=== PATIENT | male | born 1950 | race Caucasian/White ===

== ENCOUNTER → 2017-07-14 | Outpatient (CLI) | payer OTHER ==
[~2017-07-14] MED LIST: ALUM320SU PO; ASPI325; BUSP10; BUSP10 PO; CHOL10002 PO; CHROMAGEN SOFT1 EACH PO; CLOM50A PO; COMPAZINE10 MG PO; CYAN500 PO; DIPATR PO; DIPATRL; ERGO400 PO; FURO20 PO; GLEEVEC PO; HYDACE5 PO; HYDACE5325; HYDACE7.5; HYDR1TAB94; HYDR1TAB94 PO; KOSHER PRENATA1 EACH PO; LANS30EC; LEVFLO500 PO; LEVO750 PO; LOSA25 PO; LOSHYD; LOSHYD PO; Levothyroxine200 MCG PO; Lomotil Tablet1 EACH PO; MAGOX 400400 MG; MAGOX 400400 MG PO; MULVIT; Norco 5-325 Ta1 EACH PO; OMEPRAZOLE MAGN20 MG PO; ONDA4ODT MM; OXYC5; POTA8 PO; PRENAPLUS PO; PROBIOTIC1 EAC1 PO; PROP10 PO; PROP20; Percocet 5-3251 EACH PO; QUET25; QUET25 PO; RISP2; SENSIPAR PO; SULTRIDS PO; Sutent50 MG; TRAM50 PO; VALP250; ZOLP10 PO; Zithromax250 MG PO; Zofran8 MG PO; [UNRECOGNIZED DRUG - CODE]
[2017-07-14 14:27] LABS: Bilirubin, Urine Neg (Neg); Blood, Urine Neg (Neg); Glucose Qualitative, Urine Neg (Neg); Ketones, Urine Neg (Neg); Leukocyte Esterase, Urine Neg (Neg); Nitrite, Urine Neg (Neg); Protein, Urine Neg (Neg); Specific Gravity, Urine 1.015 (1.003-1.022); Urobilinogen, Urine NORM (Normal)
[2017-07-14 14:32] LABS: Albumin, Blood 3.4 g/dL (3.4-5.0); Albumin/Globulin Ratio 0.9 (0.8-1.8); Bilirubin, Total 0.3 mg/dL (0.1-1.0); Bun/Creatinine Ratio 15.4 (12.0-20.0); Calcium, Blood 11.4 mg/dL (8.5-10.1); Creatinine, Blood 1.43 mg/dL (0.60-1.20); Globulin, Blood 3.9 g/dL (2.2-4.0); Potassium, Blood 5.4 mmol/L (3.5-5.5); Total Protein, Blood 7.3 g/dL (6.4-8.2)
[2017-07-14 14:40] LABS: Appearance, Urine Clear (Clear); Color, Urine Yellow (P-Yellow)
== END ==
LOC: LAB 14:01
PROVIDERS: Internal Medicine Hematology & Oncology
DX: E83.52 Hypercalcemia (principal)
CPT/HCPCS: 80053; 81003

== ENCOUNTER 2017-07-19 09:14 | Emergency (ER) | payer OTHER ==
[~2017-07-19] VITALS: Ht 175.3 cm; Wt 102.1 kg
[~2017-07-19 09:14] MED LIST changes: -ALUM320SU PO; -ASPI325; -CHOL10002 PO; -CHROMAGEN SOFT1 EACH PO; -COMPAZINE10 MG PO; -CYAN500 PO; -DIPATRL; -ERGO400 PO; -FURO20 PO; -HYDR1TAB94; -KOSHER PRENATA1 EACH PO; -LOSA25 PO; -Levothyroxine200 MCG PO; -Lomotil Tablet1 EACH PO; -MAGOX 400400 MG; -MAGOX 400400 MG PO; -OXYC5; -POTA8 PO; -PROBIOTIC1 EAC1 PO; -Percocet 5-3251 EACH PO; -SENSIPAR PO; -Sutent50 MG; -TRAM50 PO
[2017-07-19 09:56] LABS: Alanine Aminotransfer (ALT/SGP 25 U/L (12-78); Albumin, Blood 3.5 g/dL (3.4-5.0); Albumin/Globulin Ratio 0.8 (0.8-1.8); Alk Phos 158 U/L (50-136); Anion Gap 8 mmol/L (6-16); Aspartate Aminotrans (AST/SGOT 29 U/L (12-37); Bilirubin, Total 0.4 mg/dL (0.1-1.0); Blood Urea Nitrogen 18 mg/dL (8-24); Bun/Creatinine Ratio 14.8 (12.0-20.0); CO2, Blood 22 mmol/L (21-32); Calcium, Blood 10.3 mg/dL (8.5-10.1); Chloride, Blood 107 mmol/L (98-108); Creatinine, Blood 1.22 mg/dL (0.60-1.20); Globulin, Blood 4.3 g/dL (2.2-4.0); Glomerular Filtration Rate >60 (60-); Glucose, Blood 94 mg/dL (70-99); Magnesium, Blood 1.7 mg/dL (1.6-2.4); Phosphorus, Blood 2.1 mg/dL (2.5-4.9); Potassium, Blood 4.7 mmol/L (3.5-5.5); Sodium, Blood 137 mmol/L (136-145); Total Protein, Blood 7.8 g/dL (6.4-8.2)
[2017-07-19 10:22] LABS: BASOPHILS ABSOLUTE AUTO 0.02 K/mm3 (0.00-0.23); BASOPHILS PERCENT AUTO 0 % (0-2); EOSINOPHILS ABSOLUTE AUTO 0.38 K/mm3 (0.00-0.68); EOSINOPHILS PERCENT AUTO 3 % (0-6); Hematocrit 36.9 % (37.0-53.0); Hemoglobin 11.9 g/dL (13.5-17.5); IMMATURE GRAN ABSOLUTE AUTO 0.05 K/mm3 (0.00-0.10); IMMATURE GRAN PERCENT AUTO 0 % (0-1); LYMPHOCYTES ABSOLUTE AUTO 1.16 K/mm3 (0.84-5.20); LYMPHOCYTES PERCENT AUTO 9 % (21-46); MONOCYTES ABSOLUTE AUTO 1.06 K/mm3 (0.16-1.47); MONOCYTES PERCENT AUTO 8 % (4-13); Mean Corpuscular HGB Conc 32.2 g/dL (31.5-36.5); Mean Corpuscular Volume 90 fL (80-100); NEUTROPHILS ABSOLUTE AUTO 10.84 K/mm3 (1.96-9.15); NEUTROPHILS PERCENT AUTO 80 % (41-73); Platelet Count 203 K/mm3 (150-400); RDW Coefficient Variation 14.3 % (11.7-14.2); RDW Standard Deviation 46.8 fL (35.1-46.3); Red Blood Cell Count 4.11 M/mm3 (4.30-5.90); White Blood Cell Count 13.51 K/mm3 (4.00-11.30)
[2017-07-19 10:44] LABS: Source, Urine Clean Catch
[2017-07-19 10:48] LABS: Bilirubin, Urine Neg (Neg); Blood, Urine 1+ (Neg); Glucose Qualitative, Urine Neg (Neg); Ketones, Urine Neg (Neg); Leukocyte Esterase, Urine Neg (Neg); Nitrite, Urine Neg (Neg); Protein, Urine 3+ (Neg); Specific Gravity, Urine 1.015 (1.003-1.022); Urobilinogen, Urine NORM (Normal)
[2017-07-19 11:07] LABS: Appearance, Urine Clear (Clear); Color, Urine Yellow (P-Yellow)
[2017-07-19 11:08] LABS: Bacteria Few /hpf; Squamous Epithelial Cells Few /hpf (Few); White Blood Cells, Urine 0-2 /hpf (0-5)
[2017-11-14] MEDS ORDERED: HYDR1TAB94 (08:17)
[2017-11-14] MEDS ORDERED: MAGOX 400400 MG (08:17)
[2017-11-14] MEDS ORDERED: ASPI325 (08:18)
[2017-11-21] MEDS ORDERED: CHOL10002 PO (07:38)
[2017-11-21] MEDS ORDERED: SENSIPAR PO (07:38)
[2017-11-21] MEDS ORDERED: CYAN500 PO (07:40)
[2018-04-26] MEDS ORDERED: OXYC5 (16:53)
[2018-04-26] MEDS ORDERED: PROBIOTIC1 EAC1 PO (16:53)
[2018-04-26] MEDS ORDERED: Sutent50 MG (16:54)
[2018-04-26] MEDS ORDERED: COMPAZINE10 MG PO (18:44)
== END 2017-07-19 12:31 | disposition home or self-care (01) ==
LOC: ER 09:14
PROVIDERS: Emergency Medicine
DX: R46.89 Other symptoms and signs involving appearance and behavior (principal); N28.9 Disorder of kidney and ureter, unspecified; D64.9 Anemia, unspecified; I11.0 Hypertensive heart disease with heart failure; I50.9 Heart failure, unspecified; K21.9 Gastro-esophageal reflux disease without esophagitis; Z88.0 Allergy status to penicillin; Z91.048 Other nonmedicinal substance allergy status; Z79.899 Other long term (current) drug therapy; Z85.028 Personal history of other malignant neoplasm of stomach; Z85.05 Personal history of malignant neoplasm of liver
CPT/HCPCS: 36415; 70450; 71046; 80053; 81001; 83735; 84100; 85025; 93005; 93010; 96360; 99284; J7030

== ENCOUNTER → 2018-01-04 | Outpatient (CLI) | payer OTHER ==
[~2018-01-04] MED LIST changes: +ASPI325; +CHOL10002 PO; +CYAN500 PO; +HYDR1TAB94; +MAGOX 400400 MG; +OMEP40CA12 PO; -OMEPRAZOLE MAGN20 MG PO; +SENSIPAR PO
[2018-01-04 16:55] LABS: Free Thyroxine 1.6 ng/dL (0.70-1.60)
[2018-01-04 16:56] LABS: Thyroid Stimulating Hormone 0.325 uIU/mL (0.360-4.800)
== END | disposition home or self-care (01) ==
LOC: LAB SHORT 13:56 → LAB 13:56
PROVIDERS: Internal Medicine Hematology & Oncology
DX: E07.9 Disorder of thyroid, unspecified (principal); E21.0 Primary hyperparathyroidism
CPT/HCPCS: 84439; 84443

== ENCOUNTER → 2018-01-16 | Outpatient (CLI) | payer OTHER ==
[2018-01-16 17:43] LABS: Percent Saturation 8.6 % (20.0-50.0)
[2018-01-16 17:52] LABS: Alanine Aminotransfer (ALT/SGP 26 U/L (12-78); Albumin, Blood 3.3 g/dL (3.4-5.0); Albumin/Globulin Ratio 0.8 (0.8-1.8); Alk Phos 172 U/L (50-136); Anion Gap 9 mmol/L (6-16); Aspartate Aminotrans (AST/SGOT 23 U/L (12-37); Bilirubin, Total 0.3 mg/dL (0.1-1.0); Blood Urea Nitrogen 20 mg/dL (8-24); CO2, Blood 25 mmol/L (21-32); Calcium, Blood 9.4 mg/dL (8.5-10.1); Chloride, Blood 105 mmol/L (98-108); Creatinine, Blood 1.25 mg/dL (0.60-1.20); Globulin, Blood 4.3 g/dL (2.2-4.0); Glomerular Filtration Rate >60 (60-); Glucose, Blood 111 mg/dL (70-99); Sodium, Blood 139 mmol/L (136-145); Total Protein, Blood 7.6 g/dL (6.4-8.2)
== END | disposition home or self-care (01) ==
LOC: OLS 11:30 → LAB SHORT 11:30
PROVIDERS: Internal Medicine Hematology & Oncology
DX: D64.9 Anemia, unspecified (principal)
CPT/HCPCS: 80053; 83540; 83550

== ENCOUNTER 2018-02-22 18:53 | Observation (INO) | payer OTHER ==
[~2018-02-22] VITALS: Ht 185.4 cm; Wt 96.3 kg
[~2018-02-22 18:53] MED LIST changes: -OMEP40CA12 PO; +OMEPRAZOLE MAGN20 MG PO
[2018-02-22 20:02] LABS: BASOPHILS ABSOLUTE AUTO 0.05 K/mm3 (0.00-0.23); BASOPHILS PERCENT AUTO 0 % (0-2); EOSINOPHILS ABSOLUTE AUTO 0.17 K/mm3 (0.00-0.68); EOSINOPHILS PERCENT AUTO 1 % (0-6); Hematocrit 36.8 % (37.0-53.0); Hemoglobin 11.4 g/dL (13.5-17.5); IMMATURE GRAN ABSOLUTE AUTO 0.09 K/mm3 (0.00-0.10); IMMATURE GRAN PERCENT AUTO 1 % (0-1); LYMPHOCYTES ABSOLUTE AUTO 1.05 K/mm3 (0.84-5.20); LYMPHOCYTES PERCENT AUTO 7 % (21-46); MONOCYTES ABSOLUTE AUTO 1.51 K/mm3 (0.16-1.47); MONOCYTES PERCENT AUTO 9 % (4-13); Mean Corpuscular HGB 26.5 pg (26.0-34.0); Mean Corpuscular Volume 85 fL (80-100); Mean Platelet Volume 9.3 fL (9.1-12.4); NEUTROPHILS ABSOLUTE AUTO 13.13 K/mm3 (1.96-9.15); NEUTROPHILS PERCENT AUTO 82 % (41-73); Platelet Count 323 K/mm3 (150-400); RDW Coefficient Variation 19.6 % (11.7-14.2); RDW Standard Deviation 61.3 fL (35.1-46.3); Red Blood Cell Count 4.31 M/mm3 (4.30-5.90)
[2018-02-22 20:24] LABS: Alanine Aminotransfer (ALT/SGP 30 U/L (12-78); Albumin/Globulin Ratio 0.6 (0.8-1.8); Alk Phos 163 U/L (50-136); Anion Gap 9 mmol/L (6-16); Aspartate Aminotrans (AST/SGOT 28 U/L (12-37); Bilirubin, Total 0.2 mg/dL (0.1-1.0); Blood Urea Nitrogen 18 mg/dL (8-24); Bun/Creatinine Ratio 17.5 (12.0-20.0); CO2, Blood 25 mmol/L (21-32); Calcium, Blood 9.3 mg/dL (8.5-10.1); Chloride, Blood 100 mmol/L (98-108); Creatinine, Blood 1.03 mg/dL (0.60-1.20); Globulin, Blood 4.7 g/dL (2.2-4.0); Glomerular Filtration Rate >60 (60-); Glucose, Blood 113 mg/dL (70-99); Potassium, Blood 4.5 mmol/L (3.5-5.5); Sodium, Blood 134 mmol/L (136-145); Total Protein, Blood 7.7 g/dL (6.4-8.2)
[2018-02-22 20:26] LABS: Troponin I <0.015 ng/mL (0.000-0.040)
[2018-02-22] MEDS ORDERED: FURO20 PO (20:37)
[2018-02-22] MEDS ORDERED: POTA8 PO (20:40)
[2018-02-22] MEDS ORDERED: Levothyroxine200 MCG PO (20:41)
[2018-02-22 20:58] LABS: U Amphetamine Screen Not Detected; U Barbituate Screen Not Detected; U Benzodiazapine Screen Not Detected; U Buprenorphine Screen Not Detected; U Cannabinoids Screen Not Detected; U Cocaine Screen Not Detected; U Methadone Screen Not Detected; U Methamphetamine Screen Not Detected; U Opiates Screen DETECTED; U Oxycodone Screen Not Detected; U Phencyclidine Screen Not Detected; U Propoxyphene Screen Not Detected
[2018-02-22] MEDS ORDERED: MAGOX 400400 MG PO (21:12)
[2018-02-22] MEDS ORDERED: KOSHER PRENATA1 EACH PO (21:31)
[2018-02-22] MEDS ORDERED: ALUM320SU PO (21:35)
[2018-02-22] MEDS ORDERED: HYDR1TAB94 PO (21:36)
[2018-02-22] MEDS ORDERED: ONDA4ODT MM (21:36)
[2018-02-22] MEDS ORDERED: Lomotil Tablet1 EACH PO (21:36)
[2018-02-22] MEDS ORDERED: Percocet 5-3251 EACH PO (21:37)
[2018-02-22] MEDS ORDERED: CHROMAGEN SOFT1 EACH PO (21:38)
[2018-02-22] MEDS ORDERED: DIPATRL (21:38)
[2018-02-22 22:57] LABS: Thyroid Stimulating Hormone 0.628 uIU/mL (0.360-4.800)
[2018-02-22] MEDS ORDERED: LOSA25 PO (23:06)
[2018-02-23 04:56] LABS: Source, Urine Catheter
[2018-02-23 05:08] LABS: Bilirubin, Urine Neg (Neg); Blood, Urine 2+ (Neg); Glucose Qualitative, Urine Neg (Neg); Ketones, Urine Neg (Neg); Leukocyte Esterase, Urine Neg (Neg); Nitrite, Urine Neg (Neg); Protein, Urine Neg (Neg); Urobilinogen, Urine NORM (Normal)
[2018-02-23 05:30] LABS: Appearance, Urine Clear (Clear); Color, Urine Yellow (P-Yellow)
[2018-02-23 05:32] LABS: Bacteria Rare /hpf; Hyaline Casts 0-2 /lpf (0-2); Mucus Light (0-Heavy); Red Blood Cells, Urine 0-2 /hpf (0-2); Squamous Epithelial Cells Few /hpf (Few); White Blood Cells, Urine 0-2 /hpf (0-5)
[2018-02-23 08:24] LABS: Hematocrit 36.6 % (37.0-53.0); Mean Corpuscular HGB 26.3 pg (26.0-34.0); Mean Corpuscular HGB Conc 30.1 g/dL (31.5-36.5); Mean Corpuscular Volume 87 fL (80-100); Mean Platelet Volume 10.1 fL (9.1-12.4); Platelet Count 277 K/mm3 (150-400); RDW Coefficient Variation 19.6 % (11.7-14.2); RDW Standard Deviation 62.7 fL (35.1-46.3); Red Blood Cell Count 4.19 M/mm3 (4.30-5.90); White Blood Cell Count 14.38 K/mm3 (4.00-11.30)
[2018-02-23 09:08] LABS: Anion Gap 12 mmol/L (6-16); Blood Urea Nitrogen 19 mg/dL (8-24); Bun/Creatinine Ratio 16.4 (12.0-20.0); CO2, Blood 22 mmol/L (21-32); Calcium, Blood 8.9 mg/dL (8.5-10.1); Chloride, Blood 99 mmol/L (98-108); Creatinine, Blood 1.16 mg/dL (0.60-1.20); Glomerular Filtration Rate >60 (60-); Glucose, Blood 90 mg/dL (70-99); Potassium, Blood 4.6 mmol/L (3.5-5.5); Sodium, Blood 133 mmol/L (136-145)
[2018-02-23] MEDS ORDERED: TRAM50 PO (16:29)
[2018-02-23] MEDS ORDERED: ERGO400 PO (16:29)
== END 2018-02-23 16:50 | disposition home or self-care (01) ==
LOC: ER 18:53 → MEDS 18:54 → ENPENDDIS 02-23 11:00 → MEDS 02-23 16:50
PROVIDERS: Emergency Medicine; Nurse Practitioner Acute Care
DX: R07.9 Chest pain, unspecified (principal); E03.9 Hypothyroidism, unspecified; I10 Essential (primary) hypertension; K21.9 Gastro-esophageal reflux disease without esophagitis; D64.9 Anemia, unspecified; D72.829 Elevated white blood cell count, unspecified; E22.1 Hyperprolactinemia; C18.9 Malignant neoplasm of colon, unspecified; Z79.899 Other long term (current) drug therapy; C78.7 Secondary malignant neoplasm of liver and intrahepatic bile duct; Z88.0 Allergy status to penicillin; Z79.01 Long term (current) use of anticoagulants
CPT/HCPCS: 36415; 71046; 71260; 80048; 80053; 81001; 83690; 84145; 84443; 84484; 85025; 85027; 85379; 93005; 93010; 96372; 96374; 96375; 96376; 99285-25; G0378; J1650; J1885; J2405; Q9967